=== PATIENT | male | born 1990 | race Caucasian/White ===

== ENCOUNTER 2017-01-24 07:01 | Emergency (ER) | payer MEDICAID ==
[~2017-01-24] VITALS: Ht 182.9 cm; Wt 77.1 kg
[~2017-01-24 07:01] MED LIST: NOMEDS; NOMEDS *; TRAMADOL50 M1 PO; ULTRAM50 MG PO; VOLTAREN75 MG PO; ZOFRAN4 MG PO
[2017-01-24] MEDS ORDERED: NOMEDS XX (07:10)
[2017-01-24 07:25] LABS: HEMOGLOBIN 16.2 g/dL (14.1-18.0); LYMPH % 48.4 % (10-50)
--- NOTE | 2017-01-24 07:48 | Emergency Room Report ---
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 N Clinical Suspician of Infection? N Mental Status: 1 - Regular (Normal Baseline) Sepsis Risk:Low Sepsis Risk Have you (or family members/close friends) recently traveled outside the [place]? N If Yes, where/when: Have you had exposure to infectious disease within the past month? TB? Other? Specify: Source patient, RN notes reviewed, family, old records Exam Limitations no limitations Comment pt with upper abd pain with nausea but no melena which started this am Cardiac Chest Pain Chest pain indicative of cardiac No Timing/Duration this evening Severity moderate ALLERGIES Coded Allergies: No Known Allergies (01/24/17) Home Medications Reported Medications No Home Medications (NO HOME MEDICATIONS) 1 EACH XX ONCE (Kashmir Kent MD) History Medical History General CAD? No Angina: No [place]: No Hypertension? No Hyperlipidemia? No CHF? No DVT? No PE? No COPD? No Asthma? No Anemia? No GERD? No Gastric ulcers? No GI Bleed? No Hernia? No Thyroid Problems? No Hypothyroidism? No CVA? No Seizures? No Diabetes? No Renal Insuffiency? No End Stage Renal Disease? No UTI? No Stones? No BPH? No GB Disease: No Nephritic Syndrome? No Asplenia? No Hepatitis? No Sickle Cell Disease? No Arthritis? No Migraines? No Cataracts? No Glaucoma? No MRSA? No HIV? No TB? No Anxiety? No Depression? No Cancer? No More? No Immunization Hx Ped.Immunizations UTD Yes DT/Tetanus 1-4 Years Ago Flu 2015-FSN Pneumonia Refuses Surgical Hx Previous Surgery?N Family History Family Hx Diabetes Yes CAD Yes Hypertension Yes Hyperlipidemia No Cancer Yes TB No Social History Smoking Hx Smoker: Current Every Day Smoker Tobacco: Yes Type Cigarettes Packs/day < 1 Pack Alcohol Alcohol: Yes Drugs none (Kashmir Kent MD) Review of Systems All Other Systems Reviewed and Negative Constitutional denies fever Eyes denies drainage ENT denies: ear discharge, epistaxis, throat pain. Respiratory denies cough, denies shortness of breath, denies wheezing Cardiovascular denies chest pain, denies syncope Gastrointestinal see HPI, abdominal pain, nausea Genitourinary denies: dysuria, frequency, hesitancy, hematuria. Musculoskeletal denies back pain, denies joint pain, denies neck pain Skin denies rash Psychiatric/Neurological denies anxiety, denies seizure (Kashmir Kent MD) Physical Exam Vital Signs Vital Signs Date Time Temp Pulse Resp B/P Pulse O2 O2 Flow FiO2 Ox Delivery Rate 01/24 0851 97.7 71 18 149/90 98 01/24 0847 18 01/24 0704 97.7 71 18 149/90 98 - WBC >12,000 or <4,000 or 10% bands? 2 or more SIRS Criteria Met? B/P:149/90 MAP:109 Creatinine >2.0? UA output<0.5ml/kg/hr for 2 hrs? Platelet count >100,000? Lactate >2.0mmol/1? INR >1.2 or PTT > than 60 sec? Evidence of Organ Dysfunction? Provider documented clinical suspician of infection? N Sepsis Criteria Count: 0 Sepsis Risk: Low Sepsis Risk General Appearance no apparent distress Eye Exam - bilateral eye PERRL, bilateral eye EOMI Ear, Nose, Throat normal ENT inspection Neck supple Respiratory Status No: respiratory distress. 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 No Results/Orders Laboratory Tests 01/24/17 0812: Urine Color YELLOW, Urine Appearance CLEAR, Urine pH 7.0, Ur Specific [place] 1.020, Urine Protein NEGATIVE, Urine Ketones NEGATIVE, Urine Blood NEGATIVE, Urine Nitrate NEGATIVE, Urine Bilirubin NEGATIVE, Urine Urobilinogen 1.0, Ur Leukocyte Esterase NEGATIVE, Urine RBC OCC, Urine WBC 3-5, Ur Squamous Epith Cells NONE, Urine Bacteria TRACE, Urine Glucose NEGATIVE 01/24/17712: Sodium 142, Potassium 4.1, Chloride 104, Carbon Dioxide 29, BUN 11, Creatinine 1.0, Estimated Creat Clear 123, Estimated GFR (MDRD) 91, Glucose 100, Calcium 9.2, Total Bilirubin 0.9, AST 14 L, ALT 24, Alkaline Phosphatase 69, Total Protein 7.9, Albumin 4.3, Globulin 3.6 H, Albumin/Globulin Ratio 1.2, Amylase 57, Lipase 218, WBC 8.4, RBC 5.36, Hgb 16.2, Hct 47.3, MCV 88.3, RDW 12.3, Plt Count 295, MPV 8.4, Gran % 44.2, Gran # 3.7, Lymphocytes % 48.4, Monocytes % 4.7 , Eosinophils % 2.1, Basophils % 0.7, Lymphocytes # 4.0, Monocytes # 0.4, Eosinophils # 0.2, Basophils # 0.1, PUBS MCHC 34.2, MCH 30.2 Current Medication Orders Sig/Biju Start time Last Medication Dose Route Stop Time Status Admin Morphine Sulfate 4 MG ONCE ONE 01/24 845 DC 01/24 IV 01/24 846 0847 Pantoprazole Sodium 40 MG ONCE ONE 01/24 845 DC PO 01/24 846 Promethazine HCl 12.5 MG ONCE ONE 01/24 845 DC 01/24 IV 01/24 846 0846 Sodium Chloride 25 ML ONCE ONE 01/24 845 DCD IV 01/24 859 Morphine Sulfate 0 .STK-MED ONE 01/25 844 DC .ROUTE Pantoprazole Sodium 0 .STK-MED ONE 01/25 844 DC .ROUTE Promethazine HCl 0 .STK-MED ONE 01/25 844 DC .ROUTE Famotidine 0 .STK-MED ONE 01/24 813 DC IV Sodium Chloride 1,000 ML .STK-MED ONE 01/24 813 DC IV Ondansetron HCl 0 .STK-MED ONE 01/25 812 DC .ROUTE Famotidine 20 MG ONCE ONE 01/25 800 DC 01/24 IV 01/24 801 0815 Ondansetron HCl 4 MG ONCE ONE 01/25 800 DC 01/24 IV 01/24 801 0814 Sodium Chloride 1,000 ML .Q1H1M 01/25 800 DCD 01/24 IV 01/24 900 0817 Sodium Chloride 10 ML PRN PRN 01/25 800 DCD IV 01/25 075 Sodium Chloride 8 ML ONCE ONE 01/25 800 DC IV 01/24 08 Sodium Chloride 10 ML PRN PRN 01/24 0715 DCD IV 01/25 711 Orders Procedure Date/time Status DIET-NOTHING BY MOUTH 01/[address] ABD/PELVIS REQ 01/24 711 Active IV SALINE LOCK 01/24 711 Active URINALYSIS/COMPLETE 01/24 711 Complete LIPASE 01/24 711 Complete CBC WITH AUTO DIFF 01/24 711 Complete CHEM 12 PROFILE 01/24 711 Complete AMYLASE 01/24 711 Complete XRAY/CT/US XRAY/CT/US CT abdomen, pelvis CT interpretation by discussed w/radiologist Time results known: 833 CT Results abnormal (see report) (Donte HURTADO,Kashmir Barrios) Progress - 8:00 AM: At shift change, patient report received from Dr. Kent, and care of the patient assumed by me at this time. Patient seen and examined. He says he has had abdominal pain off and on for a week and then had vomiting of blood which was also coming out of his nose this morning. No melena. He states he used to be a heavy drinker, was told by his physician a year ago to stop, but says that 2 days ago he drank 10 beers. He denies nonsteroidal anti-inflammatory drug use. No prior history of gastrointestinal bleeding or ulcers. He is on no prescription medication. He says he feels weak and dehydrated. Epigastric tenderness without rebound or guarding. Color is good. (Simona HURTADO, Shan) Departure Departure Time of Disposition 0835 Disposition DC Home or Self Care(routine) Clinical Impression Primary Impression: Gastritis Qualifiers: Gastritis type: unspecified gastritis Chronicity: acute Gastritis bleeding: without bleeding Qualified Code: K29.00 - Acute gastritis without bleeding Condition STABLE Referrals Kevin HURTADO,SANDRA Hinson MD Patient Instructions DI for Gastritis Additional Instructions see pcp and surg for follow up and no nsaif or etoh Discharge Counseling Counseled pt/family regarding diagnosis, test results, follow up needs Prescriptions Current Visit Scripts Pantoprazole Sodium (Protonix 40MG TAB) 40 MG PO DAILY #30 TAB ED Critical Care Critical Care No (Kashmir Kent MD) at 0837 at 8546
--- OUTSIDE RECORDS SUMMARY | 2017-01-24 07:48 | External Medical Summary Rpt ---
Demographics Preferred Language Japanese Marital Status Unknown Scientology Affiliation Unknown Race Unknown Ethnic Group Unknown Author Author , Organization [employer] Address Unknown Phone Unavailable Purpose Continuity of Care Document - through 2016 Immunization No patient found.
--- OUTSIDE RECORDS SUMMARY | 2017-01-24 07:48 | External Medical Summary Rpt ---
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 Name Role Phone GRANT ALL, GRANT ALL Unavailable Unavailable RAHUL CECILIO, Unavailable Unavailable RAHUL CECILIO [facility] Un[facility], [facility] Unavailable Unavailable [facility], [facility] Kashmir Kent MD, Unavailable Unavailable Kashmir Kent MD Purpose Continuity of Care Document - 05-28-2013 through 2016 Problems Code Diagnosis DOS Provider Status K828 OTHER 04-24-2016 [place] SPECIFIED MEDICAL DISEASES OF IMAGING ASS GALLBLADDER R1011 RIGHT UPPER 04-24-2016 [place] QU[facility]RANT [facility] PAIN IMAGING ASS R112 NAUSEA WITH 04-24-2016 [place] VOMITING MEDICAL UNSPECIFIED IMAGING ASS K8590 ACUTE 04-23-2016 [facility] NECROSIS/IN FECTION UNSPEC R1084 GENERALIZED 04-23-2016 [place] ABDOMINAL MEDICAL PAIN IMAGING ASS R1110 VOMITING 04-23-2016 [place] UNSPECIFIED MEDICAL IMAGING ASS 305.1 305.1 06-13-2013 [place] TOBACCO USE [facility] 597.80 597.80 06-13-2013 [place] URETHRITIS [facility] V01.6 V01.6 06-13-[address] [place] [address] [facility] DIS CONTACT Hospital Allergies, Adverse Reactions, Alerts Type Allergy to substance Drug Allergy Adverse Reaction to Substance Substance Reaction Severity INGREDIENT: NO KNOWN Unknown Unknown - NO KNOWN DRUG ALLERGY No Known Drug Unknown Unknown Allergies Medications Na ND Rx Da Fi Fi Am Da Di Ph RX Ph St me C No te ll ll ou ys ag ar # ys at rm s nt no ma ic us Or Da si cy ia de te s n re d AZ 68 11 0 No IT 08 -0 HR 40 6- Lo OM 27 20 ng YC 80 13 er IN 1 Ac 25 ti 0 ve MG TA BL ET Le 00 11 0 No vo 90 -0 fl 46 6- Lo ox 25 20 ng ac 06 13 er in 1 Ac 50 ti 0M ve G Ta bl et Vital Signs 06-13-2013 01:00 Name Value Interpretat Reference Comment ion Range BP 78 mm[Hg] Diastolic BP Systolic 161 mm[Hg] Heart 90 /min Rate/Pulse O2% 97 % Respiratory 20 /min Rate 05-28-2013 19:25 Name Value Interpretat Reference Comment ion Range BP 81 mm[Hg] Diastolic BP Systolic 145 mm[Hg] Heart 79 /min Rate/Pulse O2% 96 % Respiratory 18 /min Rate 05-28-2013 19:24 Name Value Interpretat Reference Comment ion Range BP 81 mm[Hg] Diastolic BP Systolic 145 mm[Hg] Heart 79 /min Rate/Pulse O2% 96 % Respiratory 18 /min Rate Procedures Procedure DOS Code Location Performer Comment 53879 [place] RAHUL ABDOMINAL 6 MEDICAL CECILIO REAL IMAGING TIME ASS W/[place] [address] [place] GRANT ALL ABDOMEN & 6 MEDICAL PELVIS IMAGING W/O ASS CONTRAST MATERIAL Encounters Encounter Start End Date Code Location Performer Type [facility] TOM - 6 6 [facility] Emergency BLANCO Kent MD (ER) 3 00:24 3 01:00 [facility] Emergency BLANCO Kent MD (ER) 3 18:27 3 19:24 [facility]
--- OUTSIDE RECORDS SUMMARY | 2017-01-24 07:48 | External Medical Summary Rpt ---
Author Author [employer], [employer] Organization [employer] Address Unknown Phone Unavailable Results Amylase [Enzymatic activity/volume] in Serum or Plasma Observa Value Referen Units Interpr Notes Date tion ce etation Range Amylase 25 - 115 U/L Normal No Jan 24 [Enzymati informati 2017 7:13 c on in AM activity/ source volume] data in Serum or Plasma Comprehensive metabolic 2000 panel in Serum or Plasma Observa Value Referen Units Interpr Notes Date tion ce etation Range Albumin/G 1.1 - 1.8 No Normal No Jan 24 lobulin informati informati 2016 7:13 [Mass on in on in AM ratio] in source source Serum or data data Plasma Albumin 3.4 - 5.0 gm/dL Normal No Jan 24 [Mass/vol informati 2016 7:13 ume] in on in AM Serum or source Plasma data Alkaline 46 - 116 U/L Normal No Jan 24 phosphata informati 2016 7:13 se on in AM [Enzymati source c data activity/ volume] in Serum or Plasma Bilirubin 0.2 - 1.0 mg/dL Normal No Jan 24 .total informati 2016 7:13 [Mass/vol on in AM ume] in source Serum or data Plasma Urea 7 - 18 mg/dL Normal No Jan 24 nitrogen informati 2016 7:13 [Mass/vol on in AM ume] in source Serum or data Plasma Calcium 8.5 - mg/dL Normal No Jan 24 [Mass/vol 10.1 informati 2017 7:13 ume] in on in AM Serum or source Plasma data Chloride 98 - 107 mmoL/L Normal No Jan 24 [Moles/vo informati 2016 7:13 lume] in on in AM Serum or source Plasma data Carbon 21.0 - mmoL/L Normal No Jan 24 dioxide, 32.0 informati 2017 7:13 total on in AM [Moles/vo source lume] in data Serum or Plasma Creatinin 0.70 - mg/dL Normal No Jan 24 e 1.30 informati 2017 7:13 [Mass/vol on in AM ume] in source Serum or data Plasma Creatinin 50 - 200 ML/MIN Normal No Jan 24 e renal informati 2017 7:13 clearance on in AM source predicted data by Cockcroft -Gault formula Estimated >60 ML/MIN No REFERENCE Jan 24 informati RANGE: 2017 7:13 glomerula on in >60 AM r source ML/MIN/1. filtratio data 73 SQUARE n rate METERSIf (GF this patient is -A merican, then multiply theresult by 1.210. Globulin 1.3 - 3.2 gm/dL High No Jan 24 [Mass/vol informati 2016 7:13 ume] in on in AM Serum source data Glucose 74 - 106 mg/dL Normal No Jan 24 [Mass/vol informati 2016 7:13 ume] in on in AM Serum or source Plasma data Potassium 3.5 - 5.1 mmoL/L Normal No Jan 24 informati 2016 7:13 [Moles/vo on in AM lume] in source Serum or data Plasma Sodium 136 - 145 mmoL/L Normal No Jan 24 [Moles/vo informati 2016 7:13 lume] in on in AM Serum or source Plasma data Aspartate 15 - 37 U/L Low No Jan 24 informati 2016 7:13 aminotran on in AM sferase source [Enzymati data c activity/ volume] in Serum or Plasma Alanine 12 - 78 U/L Normal No Jan 24 aminotran informati 2016 7:13 sferase on in AM [Enzymati source c data activity/ volume] in Serum or Plasma Protein 6.4 - 8.2 gm/dL Normal No Jan 24 [Mass/vol informati 2016 7:13 ume] in on in AM Serum or source Plasma data Lipase [Enzymatic activity/volume] in Serum or Plasma Observa Value Referen Units Interpr Notes Date tion ce etation Range Lipase 73 - 393 U/L Normal No Jan 24 [Enzymati informati 2017 7:13 c on in AM activity/ source volume] data in Serum or Plasma CBC W Auto Differential panel in Blood Observa Value Referen Units Interpr Notes Date tion ce etation Range Basophils 0 - 0.2 K/MM3 Normal No Jan 24 informati 2016 7:13 [#/volume on in AM ] in source Blood by data Automated count Basophils 0.1 - 2.0 % Normal No Jan 24 informati 2016 7:13 leukocyte on in AM s in source Blood by data Automated count Eosinophi 0.0 - 0.4 K/mm3 Normal No Jan 24 ls informati 2016 7:13 [#/volume on in AM ] in source Blood by data Automated count Eosinophi 0.1 - % Normal No Jan 24 ls/100 12.0 informati 2016 7:13 leukocyte on in AM s in source Blood by data Automated count Granulocy 1.3 - 8.0 K/mm3 Normal No Jan 24 nasra informati 2016 7:13 [#/volume on in AM ] in source Blood by data Automated count Granulocy 37.0 - % Normal No Jan 24 nasra/100 80.0 informati 2016 7:13 leukocyte on in AM s in source Blood by data Automated count Hematocri 42.0 - % Normal No Jan 24 t [Volume 52.0 informati 2016 7:13 on in AM Fraction] source of Blood data Hemoglobi 14.1 - g/dL Normal No Jan 24 n 18.0 informati 2016 7:13 [Mass/vol on in AM ume] in source Blood data Lymphocyt 0.7 - 4.5 K/mm3 Normal No Jan 24 es informati 2016 7:13 [#/volume on in AM ] in source Unspecifi data ed specimen by Automated count Lymphocyt 10 - 50 % Normal No Jan 24 es informati 2016 7:13 [#/volume on in AM ] in source Unspecifi data ed specimen by Automated count Erythrocy 27 - 31.2 pg Normal No Jan 24 te mean informati 2016 7:13 corpuscul on in AM ar source hemoglobi data n [Entitic mass] Erythrocy 31.8 - g/dl Normal No Jan 24 te mean 35.4 informati 2017 7:13 corpuscul on in AM ar source hemoglobi data n concentra tion [Mass/vol ume] by Automated count Erythrocy 82.2 - fl Normal No Jan 24 te mean 97.8 informati 2016 7:13 corpuscul on in AM ar volume source [Entitic data volume] by Automated count Monocytes 0.1 - 1.0 K/mm3 Normal No Jan 24 informati 2016 7:13 [#/volume on in AM ] in source Blood by data Automated count Monocytes 1.7 - 9.3 % Normal No Jan 24 informati 2017 7:13 leukocyte on in AM s in source Blood by data Automated count Platelet 7.4 - fl Normal No Jan 24 mean 10.4 informati 2016 7:13 volume on in AM [Entitic source volume] data in Blood by Automated count Platelets 142 - 424 K/mm3 Normal No Jan 24 informati 2016 7:13 [#/volume on in AM ] in source Blood data Erythrocy 4.6 - 6.2 M/mm3 Normal No Jan 24 nasra informati 2016 7:13 [#/volume on in AM ] in source Amniotic data fluid Erythrocy 11.5 - % Normal No Jan 24 te 17.5 informati 2016 7:13 distribut on in AM ion width source [Entitic data volume] by Automated count Leukocyte 4.8 - K/MM3 Normal No Jan 24 s 10.8 informati 2016 7:13 [#/volume on in AM ] in source Blood data
--- OUTSIDE RECORDS SUMMARY | 2017-01-24 07:48 | External Medical Summary Rpt ---
Author Author , Organization [employer] Address Unknown Phone Unavailable Care Team Providers Care Director Fixed Income Name Role Phone GRANT ALL, GRANT ALL Unavailable Unavailable RAHUL CECILIO, Unavailable Unavailable RAHUL CECILIO [facility] Unavailable Unavailable INC, [facility] Unavailable Unavailable [facility], [facility] Purpose Continuity of Care Document - 04-23-2016 through 2016 Problems Code Diagnosis DOS Provider Status K828 OTHER 04-24-2016 [place] SPECIFIED MEDICAL DISEASES OF IMAGING ASS GALLBLADDER R1011 RIGHT UPPER 04-24-2016 [place] [facility] PAIN IM[facility]ING ASS R112 NAUSEA WITH 04-24-2016 [place] VOMITING MEDICAL UNSPECIFIED IMAGING ASS K8590 ACUTE 04-23-2016 [facility] WO INC NECROSIS/IN FECTION UNSPEC R1084 GENERALIZED 04-23-2016 [place] ABDOMINAL MEDICAL PAIN IMAGING ASS R1110 VOMITING 04-23-2016 [place] UNSPECIFIED MEDICAL IMAGING ASS Procedures Procedure DOS Code Location Performer Comment [id number] [place] RAHUL ABDOMINAL 6 MEDICAL CECILIO REAL IMAGING TIME ASS W/[place] [address] [place] GRANT ALL ABDOMEN & 6 MEDICAL PELVIS IMAGING W/O ASS CONTRAST MATERIAL Encounters Encounter Start End Date Code Location Performer Type Date [facility]OSPITAL [facility]
--- OUTSIDE RECORDS SUMMARY | 2017-01-24 07:48 | External Medical Summary Rpt ---
Demographics Preferred Language Occitan Marital Status Unknown Rastafarian Affiliation Unknown Race Unknown Ethnic Group Unknown Author Author , Organization [employer] Address Unknown Phone Unavailable Purpose Continuity of Care Document - through 2016 Immunization No patient found.
--- OUTSIDE RECORDS SUMMARY | 2017-01-24 07:48 | External Medical Summary Rpt ---
Author Author , Organization [employer] Address Unknown Phone Unavailable Care Team Providers Care Systems Qa Analyst Name Role Phone GRANT ALL, GRANT ALL Unavailable Unavailable RAHUL CECILIO, Unavailable Unavailable RAHUL CECILIO [facility] Unavailable Un[facility] INC, [facility] Unavailable Unavailable [facility], [facility] Kashmir Kent MD, Unavailable Unavailable Kashmir Kent MD Purpose Continuity of Care Document - 05-28-2013 through 2016 Problems Code Diagnosis DOS Provider Status K828 OTHER 04-24-2016 [place] SPECIFIED MEDICAL DISEASES OF IMAGING ASS GALLBLADDER R1011 RIGHT UPPER 04-24-2016 [place] QU[facility] PAIN IMAGING ASS R112 NAUSEA WITH 04-24-2016 [place] VOMITING MEDICAL UNSPECIFIED IMAGING ASS K8590 ACUTE 04-23-2016 [facility] WO INC NECROSIS/IN FECTION UNSPEC R1084 GENERALIZED 04-23-2016 [place] ABDOMINAL MEDICAL PAIN IMAGING ASS R1110 VOMITING 04-23-2016 [place] UNSPECIFIED MEDICAL IMAGING ASS 305.1 305.1 06-13-2013 [place] TOBACCO USE [facility] 597.80 597.80 06-13-2013 [place] URETHRITIS [facility] V01.6 V01.6 06-13-2013 [place] VENEREAL [facility] DIS CONTACT Hospital Allergies, Adverse Reactions, Alerts [...] Procedures Procedure DOS Code Location Performer Comment 09209 [place] RAHUL ABDOMINAL 6 MEDICAL CECILIO REAL IMAGING TIME ASS W/[place] [address] [place] GRANT ALL ABDOMEN & 6 MEDICAL PELVIS IMAGING W/O ASS CONTRAST MATERIAL Encounters Encounter Start End Date Code Location Performer Type [facility] - 6 6 [facility] Emergency BLANCO Kent MD (ER) 3 00:24 3 01:00 [facility] Emergency BLANCO Kent MD (ER) 3 18:27 3 19:24 [facility]
--- OUTSIDE RECORDS SUMMARY | 2017-01-24 07:48 | External Medical Summary Rpt ---
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 Name Role Phone GRANT ALL, GRANT ALL Unavailable Unavailable RAHUL CECILIO, Unavailable Unavailable RAHUL CECILIO [facility] Unavailable Un[facility], [facility] Unavailable Unavailable [facility], [facility] Purpose Continuity of Care Document - 04-23-2016 through 2016 Problems Code Diagnosis DOS Provider Status K828 OTHER 04-24-2016 [place] SPECIFIED MEDICAL DISEASES OF IMAGING ASS GALLBLADDER R1011 RIGHT UPPER 04-24-2016 [place] QU[facility] MEDICAL PAIN IMAGING ASS R112 NAUSEA WITH 04-24-2016 [place] VOMITING MEDICAL UNSPECIFIED IMAGING ASS K8590 ACUTE 04-23-2016 [facility] WO INC NECROSIS/IN FECTION UNSPEC R1084 GENERALIZED 04-23-2016 [place] ABDOMINAL MEDICAL PAIN IMAGING ASS R1110 VOMITING 04-23-2016 [place] UNSPECIFIED [facility]ICAL IMAGING ASS Procedures Procedure DOS Code Location Performer Comment [id number] [place] RAHUL ABDOMINAL 6 MEDICAL CECILIO REAL IMAGING TIME ASS W/[place] [address] [place] GRANT ALL ABDOMEN & 6 MEDICAL PELVIS IMAGING W/O ASS CONTRAST MATERIAL Encounters Encounter Start End Date Code Location Performer Type Date HOSPITAL [facility] - [facility]
--- NOTE | 2017-01-24 08:14 | RADIOLOGY REPORT PS360 ---
CT ABD PELVIS W/O CONTRAST CLINICAL INDICATION: Upper abdominal pain, vomiting blood VOMITING BLOOD ORDERING PHYSICIAN: PATIENT AGE: 26 years COMPARISON: 04/23/2016 TECHNIQUE: Axial images obtained with sagittal and coronal reformats. PROCEDURE: Oral Contrast: None IV Contrast: None . FINDINGS: No acute finding in the lung bases. The liver, spleen, adrenal glands, gallbladder, and pancreas have an unremarkable unenhanced CT appearance. No renal calculi or ureteral calculi. No hydronephrosis. There is mild to moderate distention of the stomach. There is a mild amount retained colonic feces. No evidence of small bowel obstruction. There is hyperdensity in the appendix consistent with appendicolith. Appendix is slightly prominent measuring 8 mm in diameter. There is no stranding of the periappendiceal fat. No evidence of diverticulitis. No abnormal fluid collection or acute bony anomalies. There are scattered small lymph nodes in the retroperitoneum IMPRESSION: 1. Mild to moderate distention of the stomach. 2. Hyperdensity within the appendix and may be due to appendicolith or ingested material such as contrast.. 3. Appendix is somewhat prominent measuring up to 8 mm in diameter minimal prominence of the appendiceal wall distally. Appendicitis is not excluded. Clinical correlation required.
[2017-01-24 08:20] LABS: URINE BILIRUBIN - DIPSTICK NEGATIVE (NEG); URINE BLOOD NEGATIVE (NEG)
[2017-01-24] MEDS ORDERED: PROTONIX 40MG T40 MG PO (08:37)
[2017-01-24 08:51] VITALS: BP 149/90
== END 2017-01-24 08:52 | disposition home or self-care (01) ==
LOC: ER 07:01
PROVIDERS: Emergency Medicine
DX: K29.00 Acute gastritis without bleeding (principal); Z72.0 Tobacco use
CPT/HCPCS: J2405